=== PATIENT | male | born 1970 | race Hispanic/Latino ===

== ENCOUNTER 2020-03-03 09:52 | Inpatient (IN) | payer OTHER ==
[~2020-03-03] VITALS: Ht 170.2 cm; Wt 114.8 kg
[2020-03-03] MEDS ORDERED: PANTOPRAZOLE 40 MG 10ML VIAL IV STA (10:06)
[2020-03-03] MEDS ORDERED: HYDROMORPHONE 1MG/1ML INJ IV STA (10:06)
[2020-03-03] MEDS ORDERED: ONDANSETRON HCL INJ 2MG/ML 2ML 2 MG/ML VIAL IV STA (10:06)
[2020-03-03] MEDS ORDERED: SODIUM CHLORIDE 0.9% 1000ML 1,000 ML IV STA (10:06)
[2020-03-03 10:36] LABS: BASOPHILS % 0.3 % (0.0-1.0); EOSINOPHILS # (AUTO) 0.1 (0.0-0.4); EOSINOPHILS % 1.9 % (0.0-6.0); HEMATOCRIT 40.6 % (38.2-49.6); HEMOGLOBIN 13.8 g/dL (14.0-18.0); LYMPHOCYTES # (AUTO) 0.4 (1.0-3.2); LYMPHOCYTES % 4.7 % (18.0-39.1); MEAN CORPUSCULAR HEMOGLOBIN 30.7 pg (28-32); MEAN CORPUSCULAR VOLUME 90.4 fL (81-99); MONOCYTES # (AUTO) 0.7 (0.2-0.8); MONOCYTES % 8.9 % (4.4-11.3); NEUTROPHILS # (AUTO) 6.2 (2.1-6.9); NEUTROPHILS % 83.7 % (38.7-80.0); PLATELET COUNT 184 x10e3/uL (140-360); RED BLOOD COUNT 4.49 x10e6/uL (4.3-5.7); RED CELL DISTRIBUTION WIDTH 14.4 % (11.7-14.4)
--- OUTSIDE RECORDS SUMMARY | 2020-03-03 10:37 | XMS REPORT | Clinical Summary ---
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 Active Problems Not on file Social History Date Tobacco Use Types Packs/Day Years Used Current Some Day Smoker Cigarettes 0.25 30 Smokeless Tobacco: Never Used Drinks/Week oz/Week Comments Alcohol Use 12 Cans of beer 12.0 Yes Sex Assigned at Date Recorded Not on file Industry Job Start Date Occupation Not on file Not on file Not on file Travel End Travel History Travel Start No recent travel history available. 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
--- OUTSIDE RECORDS SUMMARY | 2020-03-03 10:37 | XMS REPORT | Continuity of Care Document ---
Author Author [facility] t Organization [facility] Address [address] [place] [address] Phone Unavailable Care Team Providers Care Nursing Staffing Coordinator Name Role Phone Asked, Pcp No PCP Unavailable Payers Payer Name Policy Type Policy Number Effective Date Expiration Date S ource Problems This patient has no known problems. Allergies, Adverse Reactions, Alerts Allergy Name Allergy Type Status Severity Reaction(s) Onset Date Inacti ve Date Treating Clinician Comments Source No Known Allergies DA Active U 2019-12-08 00:00:00 [facility] No Known Allergies DA Active U 2016-06-10 00:00:00 [facility] Social History Social Habit Start Date Stop Date Quantity Comments Source History of tobacco use Cigarette Smoker Joseph Cervantes Sex Assigned At [facility] [employer] Cigarettes smoked current (pack per day) - Reported 00:00:00 2018-06-24 00:00:00 Joseph Cervantes Cigarette pack-years 2018-06-24 00:00:00 2018-06-24 00:00:00 Joseph Cervantes Alcohol intake 2018-06-24 00:00:00 2018-06-24 00:00:00 Current drinker of alcohol (finding) Joseph Cervantes Smoking Status Start Date Stop Date Source Current some day smoker 2018-06-24 00:00:00 James Cervantes Medications Ordered Medication Name Filled Medication Name Start Date Stop Da te Current Medication? Ordering Clinician Indication Dosage Frequency Signature (SIG) Comments Components Source LISINOPRIL-HCTZ 10-12.5 MG COMBO DOSE 2018-06-24 13:11:13 Y es 1{tbl} QD Take 1 tablet by mouth daily. [facility] Procedures This patient has no known procedures. Plan of Care Planned Activity Planned Date Details Comments Source Future Scheduled Test 2020-03-14 00:00:00 INFLUENZA VACCINE [code = INFLUENZA VACCINE] Joseph Cervantes Future Scheduled Test 2019 00:00:00 COLONOSCOPY SCREEN ING [code = [facility] SCREENING[facility] 2019 00:00:00 SHINGLES VACCINES (#1) [code = SHINGLES VACCINES (#1)] [facility] Results Test Description Test Time Test Comments Results Result Comments Source - CT ABD PELVIS W/CONT 2019-12-08 13:04:00 Nam e: CRIS STEWART [facility] : 1970 Age/S: 49 / M [address] [facility] Unit #: [id number] [place]: [place] [address] Phys: Raj Miramontes NP Acct: [id number] Dis Date: Status: REG ER PHONE #: [phone] Exam Date: 12/08/2019 1227 FAX #: [phone] Reason: LOWER RIGHT ABD PAIN R/O APPENDICITIS EXAMS: CPT CODE: [id number] CT ABD PELVIS W/CONT 10372 REASON FOR EXAM: LOWER RIGHT ABD PAIN R/O APPENDICITIS EXAM ORDER DATE: 12/08/2019 10:02 AM Ordering MRenetta: Raj Miramontes NP PROCEDURE: Axial CT images were acquired through the abdomen/pelvis at 5 mm intervals. Sagittal and coronal reformatted images were generated. Automated exposure control was utilized for this reduction. Phases of contrast: venous and delayed COMPARISON: None FINDINGS: V isualized thorax: Normal Hepatobiliary system: Hepatomegaly with hepatic steatosis. Gallbladder is within normal limits Pancreas: Normal Spleen: Normal Adrenal glands: Normal Genitourinary system: Simple cortical cysts are present in both kidneys. Otherwise normal Gastrointestinal tract and appendix: Normal. Specifically the appendix is normal in caliber with no intraluminal appendicolith and no mural thickening Abdominal vascular structures: Mild atherosclerotic calcifications are present in the abdominal aorta and iliac arteries Peritoneum and retroperitoneum: No free fluid or free air. No omental or mesenteric masses. No abnormal lymph nodes. There is mild stranding of the mesentery in the right lower abdomen adjacent to the right gonadal vein (series 601 image 91). 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 However the appendix appears within normal limits with no dilation or mural thickening or intraluminal appendicolith. 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 Location: [facility] at 1304 Reported and signed by: Omer Jalloh MD CC: Sebas Jauregui MD; Raj Miramontes NP Technologist:Cristian Gomez RT(R),(MR),(CT) CTDI: DLP: Trnscb Date/Time: 12/08/2019 (1304) [id number] Orig Print D/T: S: 12/08/2019 (3979) PAGE 2 Signed Report BASIC METABOLIC PANEL 2019-12-08 11:54:00 Test Item SODIUM (test code = NA) 138 mmol/L 136-145 N POTASSIUM (test code = K) 4.1 mmol/L 3.5-5.1 N CHLORIDE (test code = CL) 101.0 mmol/L 98-107 N CARBON DIOXIDE (test code = CO2) 29.0 mmol/L 21-32 N ANION GAP (test code = GAP) 12.1 10-20 N GLUCOSE (test code = GLU) 141 mg/dL 74-106 H BLOOD UREA NITROGEN (test code = BUN) 11 mg/dL 7-18 N GLOMERULAR FILTRATION RATE (test code = GFR) > 60 mL/min >=60 Estimated GFR by using Modified MDRD formula.Chronic kidney disease is defined as either kidney damageor GFR <60 mL/min/1.73 m2 for >3 months. CREATININE (test code = CREAT) 1.00 mg/dL 0.7-1.3 N BUN/CREATININE RATIO (test code = BUN/CREA) 11.5 10-20 N CALCIUM (test code = CA) 9.6 mg/dL 8.5-10.1 N HEPATIC FUNCTION [id number] 11:54:00* Test Item Value Reference Range Interpretation Comments TOTAL PROTEIN (test code = PROT) 8.0 gram/dL 6.4-8.2 N ALBUMIN (test code = ALB) 3.5 g/dL 3.4-5.0 N GLOBULIN (test code = GLOB) 4.5 gram/dL 2.7-4.2 H ALBUMIN/GLOBULIN RATIO (test code = A/G) 0.8 0.75-1.50 N BILIRUBIN TOTAL (test code = BILT) 1.20 mg/dL 0.0-1.0 H BILIRUBIN DIRECT (test code = BILD) 0.28 mg/dL 0.0-0.20 H SGOT/AST (test code = AST) 110 IUnit/L 15-37 H SGPT/ALT (test code = ALT) 214 IUnit/L 12-78 H ALKALINE PHOSPHATASE TOTAL (test code = ALKP) 76 IUnit/L 45-117 N Note change in reference range due to change in reagent. [id number] 11:54:00* Test Item Value Reference Range Interpretation Comments LIPASE (test code = LIP) 225 U/L 73.0-393.0 N [id number] 11:54:00* Test Item Value Reference Range Interpretation Comments TROPONIN-I (test code = TROPI) <0.015 ng/mL 0-0.045 N BASIC METABOLIC [id number] 11:49:00* Test Item Value Reference Range Interpretation Comments SODIUM (test code = NA) 138 mmol/L 136-145 N POTASSIUM (test code = K) 4.1 mmol/L 3.5-5.1 N CHLORIDE (test code = CL) 101.0 mmol/L 98-107 N CARBON DIOXIDE (test code = CO2) mmol/L 21-32 ANION GAP (test code = GAP) 10-20 GLUCOSE (test code = GLU) mg/dL 74-106 BLOOD UREA NITROGEN (test code = BUN) mg/dL 7-18 GLOMERULAR FILTRATION RATE (test code = GFR) mL/min >=60 CREATININE (test code = CREAT) mg/dL 0.7-1.3 BUN/CREATININE RATIO (test code = BUN/CREA) 10-20 CALCIUM (test code = CA) mg/dL 8.5-10.1 HEPATIC FUNCTION [id number] 11:49:00* Test Item Value Reference Range Interpretation Comments TOTAL PROTEIN (test code = PROT) gram/dL 6.4-8.2 ALBUMIN (test code = ALB) g/dL 3.4-5.0 GLOBULIN (test code = GLOB) gram/dL 2.7-4.2 ALBUMIN/GLOBULIN RATIO (test code = A/G) 0.75-1.50 BILIRUBIN TOTAL (test code = BILT) mg/dL 0.0-1.0 BILIRUBIN DIRECT (test code = BILD) mg/dL 0.0-0.20 SGOT/AST (test code = AST) IUnit/L 15-37 SGPT/ALT (test code = ALT) IUnit/L 12-78 ALKALINE PHOSPHATASE TOTAL (test code = ALKP) IUnit/L 45-117 [id number] 11:49:00* Test Item Value Reference Range Interpretation Comments LIPASE (test code = LIP) U/L 73.0-393.0 [id number] 11:49:00* Test Item Value Reference Range Interpretation Comments TROPONIN-I (test code = TROPI) ng/mL 0-0.045 URINALYSIS [id number] 11:33:00* Test Item Value Reference Range Interpretation Comments UA COLOR (test code = COLU) Light-Yellow YELLOW UA APPEARANCE (test code = APPU) CLEAR CLEAR UA GLUCOSE DIPSTICK (test code = DGLUU) NEGATIVE mg/dL NEGATIVE UA BILIRUBIN DIPSTICK (test code = BILU) NEGATIVE mg/dL NEGATIVE UA KETONE DIPSTICK (test code = KETU) NEGATIVE mg/dL NEGATIVE UA SPECIFIC GRAVITY (test code = SGU) 1.017 1.001-1.035 UA BLOOD DIPSTICK (test code = CHARO) Negative mg/dL NEGATIVE UA PH DIPSTICK (test code = RED) 7.5 5.0-8.0 UA PROTEIN DIPSTICK (test code = PROU) NEGATIVE mg/dL NEGATIVE UA UROBILINIOGEN DIPSTICK (test code = URO) Normal mg/dL NEGATIVE UA NITRITE DIPSTICK (test code = TREY) NEGATIVE NEGATIVE UA LEUKOCYTE ESTERASE W REFLEX (test code = LEUUR) NEGATIVE Alva/uL NEGATIVE UA WBC (test code = WBCU) 0-5 per HPF 0-5 UA RBC (test code = RBCU) 0-2 #/HPF 0-5 UA EPITHELIAL CELLS (test code = EPIU) None seen per HPF FEW UA BACTERIA (test code = BACU) NONE SEEN #/HPF NONE UA MUCUS (test code = MUCU) FEW #/LPF FEW Urine Source? Clean CatchCBC W/O [id number] 11:32:00* Test Item Value Reference Range Interpretation Comments WHITE BLOOD CELL (test code = WBC) 12.3 K/mm3 4.5-12.5 N RED BLOOD CELL (test code = RBC) 5.46 mill/mm3 4.0-5.8 N HEMOGLOBIN (test code = HGB) 16.7 gram/dL 13.0-17.5 N HEMATOCRIT (test code = HCT) 48.5 % 42.0-52.0 N MEAN CELL VOLUME (test code = MCV) 88.8 fL 80-98 N MEAN CELL HGB (test code = MCH) 30.6 picogram 27.0-33.0 N MEAN CELL HGB CONCETRATION (test code = MCHC) 34.4 gram/dL 33.0-36. 0 N RED CELL DISTRIBUTION WIDTH (test code = RDW) 12.5 % 11.6-16. 2 N PLATELET COUNT (test code = PLT) 268 K/mm3 150-450 N MEAN PLATELET VOLUME (test code = MPV) 9.9 fL 6.7-11.0 N URINALYSIS [id number] 11:32:00* Test Item Value Reference Range Interpretation Comments UA COLOR (test code = COLU) Light-Yellow YELLOW UA APPEARANCE (test code = APPU) CLEAR CLEAR UA GLUCOSE DIPSTICK (test code = DGLUU) NEGATIVE mg/dL NEGATIVE UA BILIRUBIN DIPSTICK (test code = BILU) NEGATIVE mg/dL NEGATIVE UA KETONE DIPSTICK (test code = KETU) NEGATIVE mg/dL NEGATIVE UA SPECIFIC GRAVITY (test code = SGU) 1.017 1.001-1.035 UA BLOOD DIPSTICK (test code = CHARO) Negative mg/dL NEGATIVE UA PH DIPSTICK (test code = RED) 7.5 5.0-8.0 UA PROTEIN DIPSTICK (test code = PROU) NEGATIVE mg/dL NEGATIVE UA UROBILINIOGEN DIPSTICK (test code = URO) Normal mg/dL NEGATIVE UA NITRITE DIPSTICK (test code = TREY) NEGATIVE NEGATIVE UA LEUKOCYTE ESTERASE W REFLEX (test code = LEUUR) NEGATIVE Alva/uL NEGATIVE UA WBC (test code = WBCU) per HPF 0-5 UA RBC (test code = RBCU) per HPF 0-5 UA EPITHELIAL CELLS (test code = EPIU) per HPF Few UA BACTERIA (test code = BACU) per HPF NONE Urine Source? Clean CatchCBC W/O [id number] 11:31:00* Test Item Value Reference Range Interpretation Comments WHITE BLOOD CELL (test code = WBC) K/mm3 4.5-12.5 RED BLOOD CELL (test code = RBC) mill/mm3 4.0-5.8 HEMOGLOBIN (test code = HGB) 16.7 gram/dL 13.0-17.5 N HEMATOCRIT (test code = HCT) 48.5 % 42.0-52.0 N MEAN CELL VOLUME (test code = MCV) fL 80-98 MEAN CELL HGB (test code = MCH) picogram 27.0-33.0 MEAN CELL HGB CONCETRATION (test code = MCHC) gram/dL 33.0-36. 0 RED CELL DISTRIBUTION WIDTH (test code = RDW) % 11.6-16. 2 PLATELET COUNT (test code = PLT) K/mm3 150-450 MEAN PLATELET VOLUME (test code = MPV) fL 6.7-11.0
[2020-03-03 10:44] LABS: CLARITY,URINE CLEAR (CLEAR); COLOR,URINE YELLOW (YELLOW); KETONES,URINE 2+ (NEGATIVE); LEUKOCYTE ESTERASE ,URINE NEGATIVE (NEGATIVE); NITRITE,URINE NEGATIVE (NEGATIVE); PROTEIN,URINE DIPSTICK NEGATIVE (NEGATIVE); URINE UROBILINOGEN 0.2 mg/dL (0.2 - 1)
[2020-03-03 10:45] LABS: BILIRUBIN,URINE SMALL (NEGATIVE)
[2020-03-03 10:48] LABS: PARTIAL THROMBOPLASTIN TIME 34.1 seconds (23.8-35.5); PROTHROMBIN TIME 13.7 seconds (11.9-14.5)
[2020-03-03 10:54] LABS: BACTERIA,URINE FEW /HPF; EPITHELIAL CELLS,URINE RARE /LPF; WBC,URINE (MAN) 0-5 /HPF (0-5)
[2020-03-03 11:00] LABS: ALANINE AMINOTRANSFERASE 24 IU/L (0-55); ALBUMIN 3.6 g/dL (3.5-5.0); ALBUMIN/GLOBULIN RATIO 0.9 (0.8-2.0); ALKALINE PHOSPHATASE 50 IU/L (40-150); ANION GAP 16.1 mmol/L (8-16); BLOOD UREA NITROGEN 10 mg/dL (7-26); BUN/CREATININE RATIO 13 (6-25); CALCIUM 10.5 mg/dL (8.4-10.2); CARBON DIOXIDE 28 mmol/L (22-29); CHLORIDE 99 mmol/L (98-107); CREATINE KINASE 51 IU/L (30-200); CREATININE, SERUM 0.77 mg/dL (0.72-1.25); EST GLOMERULAR FILTRATION RATE > 60 ML/MIN (60-); GLUCOSE 105 mg/dL (74-118); LIPASE 57 U/L (8-78); MAGNESIUM 1.8 MG/DL (1.3-2.1); POTASSIUM 4.1 mmol/L (3.5-5.1); SODIUM 139 mmol/L (136-145)
--- NOTE | 2020-03-03 11:40 | Emergency Department Note ---
History of Present Illnes History of Present Illness Chief Complaint: Abdominal Complaints History of Present Illness This is a 50 year old male X3 DAYS RIGHT SIDE ABDOMINAL PAIN DESCRIBED DULL. 1ST DAY HE STATES HE HAD SUBJECTIVE FEVER, CHILLS, AND NAUSEA. HE HAS NOT EATEN ANYTHING FOR LAST 3 DAYS AND IS TAKING HYDROCODONE PATIENT IN CURRENT [place] FOR THROAT CANCER WITH CARBOPLATIN (6 TREATMENTS) AND COMPLETED RADIATION LAST WEEK. 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 Any updates have been documented here. Past Medical History Recent Fever: Yes (SUBJECTIVE) Clinical Suspicion of Infectio: No New/Unexplained Change in Ment: No Past Medical History: Hypertension, Cancer Other Medical History: THROAT CANCER Past Surgical History: Hernia Repair Other Surgery: CARPAL TUNNEL Social History Smoking Cessation: Former smoker Counseling Performed: No Alcohol Use: None Any Illegal Drug Use: No TB Exposure/Symptoms: No Physically hurt or threatened: No Family History Family history of heart diseas: No Other Any Pre-Existing Lines (PICC,: No Review of Systems Review of Systems Constitutional: Reports no symptoms EENTM: Reports no symptoms Cardiovascular: Reports no symptoms Respiratory: Reports no symptoms Gastrointestinal: Reports as per HPI Genitourinary: Reports no symptoms Musculoskeletal: Reports no symptoms Integumentary: Reports no symptoms Neurological: Reports no symptoms Psychological: Reports no symptoms Endocrine: Reports no symptoms Hematological/Lymphatic: Reports no symptoms Physical Exam Related Data Allergies: Coded Allergies: No Known Allergies (Unverified , 03/03/20) Triage Vital Signs Vital Signs Date Time Temp Pulse Resp B/P (MAP) Pulse Ox O2 Delivery O2 Flow Rate FiO2 03/03/20 09:56 97.9 78 18 133/86 99 Room Air Vital signs reviewed: Yes Physical Exam CONSTITUTIONAL Constitutional: Present well-developed, Present well-nourished HENT HENT: Present normocephalic, Present atraumatic, Present oropharynx clear/moist, Present nose normal HENT L/R: Present left ext ear normal, Present right ext ear normal EYES Eyes: Reports PERRL, Reports conjunctivae normal NECK Neck: Present ROM normal PULMONARY Pulmonary: Present effort normal, Present breath sounds normal CARDIOVASCULAR Cardiovascular: Present regular rhythm, Present heart sounds normal, Present capillary refill normal, Present normal rate GASTROINTESTINAL Abdominal: Present soft, Present bowel sounds normal, Present tender (MOD RLQ WITHOUT R/G); Absent guarding, Absent rebound GENITOURINARY Genitourinary: Present exam deferred SKIN Skin: Present warm, Present dry MUSCULOSKELETAL Musculoskeletal: Present ROM normal NEUROLOGICAL Neurological: Present alert, Present oriented x 3, Present no gross motor or sensory deficits PSYCHOLOGICAL Psychological: Present mood/affect normal, Present judgement normal Results Laboratory Result Diagram: 03/03/20 1015 03/03/20 1005 Laboratory Laboratory Tests Test 03/03/20 10:15 03/03/20 10:05 White Blood Count 7.42 x10e3/uL (4.8-10.8) Red Blood Count 4.49 x10e6/uL (4.3-5.7) Hemoglobin 13.8 g/dL (14.0-18.0) Hematocrit 40.6 % (38.2-49.6) Mean Corpuscular Volume 90.4 fL (81-99) Mean Corpuscular Hemoglobin 30.7 pg (28-32) Mean Corpuscular Hemoglobin Concent 34.0 g/dL (31-35) Red Cell Distribution Width 14.4 % (11.7-14.4) Platelet Count 184 x10e3/uL (140-360) Neutrophils (%) (Auto) 83.7 % (38.7-80.0) Lymphocytes (%) (Auto) 4.7 % (18.0-39.1) Monocytes (%) (Auto) 8.9 % (4.4-11.3) Eosinophils (%) (Auto) 1.9 % (0.0-6.0) Basophils (%) (Auto) 0.3 % (0.0-1.0) Neutrophils # (Auto) 6.2 (2.1-6.9) Lymphocytes # (Auto) 0.4 (1.0-3.2) Monocytes # (Auto) 0.7 (0.2-0.8) Eosinophils # (Auto) 0.1 (0.0-0.4) Basophils # (Auto) 0.0 (0.0-0.1) Absolute Immature Granulocyte (auto 0.04 x10e3/uL (0-0.1) Prothrombin Time 13.7 seconds (11.9-14.5) Prothromb Time International Ratio 1.00 Activated Partial Thromboplast Time 34.1 seconds (23.8-35.5) Urine Color Yellow (YELLOW) Urine Clarity Clear (CLEAR) Urine pH 6 (5 - 7) Urine Specific Sargent 1.020 (1.010-1.025) Urine Protein Negative (NEGATIVE) Urine Glucose (UA) Negative (NEGATIVE) Urine Ketones 2+ (NEGATIVE) Urine Blood Negative (NEGATIVE) Urine Nitrite Negative (NEGATIVE) Urine Bilirubin Small (NEGATIVE) Urine Urobilinogen 0.2 mg/dL (0.2 - 1) Urine Leukocyte Esterase Negative (NEGATIVE) Urine RBC None /HPF (0-5) Urine WBC 0-5 /HPF (0-5) Urine Epithelial Cells Rare /LPF (NONE) Urine Bacteria Few /HPF (NONE) Sodium Level 139 mmol/L (136-145) Potassium Level 4.1 mmol/L (3.5-5.1) Chloride Level 99 mmol/L (98-107) Carbon Dioxide Level 28 mmol/L (22-29) Anion Gap 16.1 mmol/L (8-16) Blood Urea Nitrogen 10 mg/dL (7-26) Creatinine 0.77 mg/dL (0.72-1.25) Estimat Glomerular Filtration Rate > 60 ML/MIN (60-) BUN/Creatinine Ratio 13 (6-25) Glucose Level 105 mg/dL (74-118) Calcium Level 10.5 mg/dL (8.4-10.2) Magnesium Level 1.8 MG/DL (1.3-2.1) Total Bilirubin 1.2 mg/dL (0.2-1.2) Aspartate Amino Transf (AST/SGOT) 21 IU/L (5-34) Alanine Aminotransferase (ALT/SGPT) 24 IU/L (0-55) Alkaline Phosphatase 50 IU/L (40-150) Creatine Kinase 51 IU/L (30-200) Creatine Kinase MB 0.60 ng/mL (0-5.0) Troponin I < 0.001 ng/mL (0-0.300) Total Protein 7.5 g/dL (6.5-8.1) Albumin 3.6 g/dL (3.5-5.0) Globulin 3.9 g/dL (2.3-3.5) Albumin/Globulin Ratio 0.9 (0.8-2.0) Lipase 57 U/L (8-78) Lab results reviewed: Yes Imaging Imaging results reviewed: Yes Assessment & Plan Medical Decision Making MDM ABD PAIN, NAUSEA, RECENT CHEMO 4 D AGO, TENDER RLQ - CBC, CHEM, UA, CT ABD/PELVIS - R/O APPENDICITIS, COLITIS, MASS, ELECTROLYTE ABNL, RENAL INSUFF Reassessment Reassessment APPENDICITIS - SPOKE WITH DR SARGENT AND DR Rc MCMILLAN Assessment & Plan Final Impression: (1) Appendicitis Depart Disposition: ADMITTED Last Vital Signs Date Time Temp Pulse Resp B/P (MAP) Pulse Ox O2 Delivery O2 Flow Rate FiO2 03/03/20 11:05 65 16 125/76 97 Room Air 03/03/20 10:42 98.1 Medications in the ED Pantoprazole Sodium 40 mg ONCE STAT IV Last administered on 03/03/20at 10:35; Admin Dose 40 MG; Start 03/03/20 at 10:06; Stop 03/03/20 at 10:23; Status DC Hydromorphone HCl 1 mg ONCE STAT IV Last administered on 03/03/20at 10:35; Admin Dose 1 MG; Start 03/03/20 at 10:06; Stop 03/03/20 at 10:23; Status DC Ondansetron HCl 4 mg ONCE STAT IV Last administered on 03/03/20at 10:35; Admin Dose 4 MG; Start 03/03/20 at 10:06; Stop 03/03/20 at 10:23; Status DC Sodium Chloride 1,000 ml @ 0 mls/hr Q0M STAT IV Last administered on 03/03/20at 10:36; Admin Dose 999 MLS/HR; Start 03/03/20 at 10:06; Stop 03/03/20 at 10:09; Status DC VIOLETA SLAUGHTER MD Mar 03, 2020 11:40
--- NOTE | 2020-03-03 11:42 | Diagnostic Imaging Report ---
EXAMINATION: CHEST SINGLE (PORTABLE) INDICATION: Abdominal pain COMPARISON: None FINDINGS: LINES/TUBES:None LUNGS:The lungs are well-inflated. No focal consolidation or pulmonary edema. PLEURA:No pleural effusion or pneumothorax. MEDIASTINUM:The cardiomediastinal silhouette appears normal in size and shape. BONES/SOFT TISSUES:No acute osseous injury. ABDOMEN:No free air under the diaphragm. IMPRESSION: No focal pneumonia or pulmonary edema. Signed by: Jerilyn Bolaños MD on 03/03/2020 11:38 AM
--- NOTE | 2020-03-03 12:15 | Diagnostic Imaging Report ---
EXAM: CT Abdomen and Pelvis WITH intravenous contrast INDICATION: Abdominal pain COMPARISON: None. TECHNIQUE: Abdomen and pelvis were scanned utilizing a multidetector helical scanner from the lung base to the pubic symphysis after administration of IV contrast. Coronal and sagittal reformations were obtained. Routine protocol was performed. Scan was performed during portal venous phase. IV CONTRAST: 100mL of Isovue 370 ORAL CONTRAST: Water RADIATION DOSE: Total DLP: 925 mGy*cm Dose modulation, iterative reconstruction, and/or weight based adjustment of the mA/kV was utilized to reduce the radiation dose to as low as reasonably achievable. FINDINGS: LOWER THORAX: Normal. HEPATOBILIARY: Diffuse hepatic steatosis. No focal liver lesion. No biliary ductal dilation. Unremarkable gallbladder. SPLEEN: No splenomegaly. PANCREAS: No focal masses or ductal dilatation. ADRENALS: No adrenal nodules. KIDNEYS/URETERS: No hydronephrosis or renal calculi. Bilateral renal cysts measure up to 2.3 cm on the right and 3.4 cm on the left. PELVIC ORGANS/BLADDER: Unremarkable. PERITONEUM / RETROPERITONEUM: No free air or fluid. LYMPH NODES: No lymphadenopathy. VESSELS: Scattered atherosclerotic calcifications of the nonaneurysmal abdominal aorta and major branches. GI TRACT: Appendiceal dilation to 11 mm with adjacent right lower quadrant periappendiceal fat stranding. No associated focal fluid collection. No extraluminal free air. Diverticulosis without CT evidence of diverticulitis. No bowel obstruction. BONES AND SOFT TISSUES: No acute osseous injury. No suspicious lytic or blastic lesions. IMPRESSION: Acute appendicitis. No evidence of perforation or associated abscess. Diffuse hepatic steatosis. Diverticulosis. The above findings were discussed with Dr. Oviedo on 03/03/2020 12:10 PM, who responded indicating that the communication was understood. Signed by: Jerilyn Bolaños MD on 03/03/2020 12:11 PM
[2020-03-03] MEDS ORDERED: MORPHINE SULFATE 2 MG/ML SYR 1ML IV PRN (12:30)
[2020-03-03] MEDS ORDERED: PIPER-TAZ 3.375 GM / NS 50ML IV SCH (12:30)
[2020-03-03] MEDS ORDERED: ONDANSETRON HCL INJ 2MG/ML 2ML 2 MG/ML VIAL IV PRN (12:30)
[2020-03-03] MEDS ORDERED: SODIUM CHLORIDE 0.9% 50ML 50 ML ONE (12:33)
[2020-03-03] MEDS ORDERED: IOPAMIDOL 370 MG/ML 200 ML INFUS..BTL INJ ONE (12:33)
[2020-03-03] MEDS ORDERED: PIPER-TAZ 3.375 GM 50 ML IV SCH (12:45)
[2020-03-03] MEDS: SODIUM CHLORIDE 0.9% 1000ML 1,000 ML IV SCH ×2 (12:48→22:33)
--- OUTSIDE RECORDS SUMMARY | 2020-03-03 13:02 | XMS REPORT | Clinical Summary ---
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
--- OUTSIDE RECORDS SUMMARY | 2020-03-03 13:02 | XMS REPORT | Continuity of Care Document ---
Author Author [facility] t Organization [facility] Address [address] [place] [address] Phone Unavailable Care Team Providers Care Machine Operator Hop Picker Name Role Phone Asked, Pcp No PCP Unavailable SWEET, A LAIRD Attphys Unavailable Payers Payer Name Policy Type Policy Number Effective Date Expiration Date S ource Problems This patient has no known problems. Allergies, Adverse Reactions, Alerts Allergy Name Allergy Type Status Severity Reaction(s) Onset Date Inacti ve Date Treating Clinician Comments Source No Known Allergies DA Active U 2019-12-08 00:00:00 [facility] No Known Allergies DA Active U 2016-06-10 00:00:00 [facility] Social History Social Habit Start Date Stop Date Quantity Comments Source History of tobacco use Cigarette Smoker Joseph Cervantes Sex Assigned At Bethanie morfin Billy Cigarettes smoked current (pack per day) - Reported 00:00:00 2018-06-24 00:00:00 Joseph Cervantes Cigarette pack-years 2018-06-24 00:00:00 2018-06-24 00:00:00 Joseph Cervantes Alcohol intake 2018-06-24 00:00:00 2018-06-24 00:00:00 Current drinker of alcohol (finding) Joseph Cervantes Smoking Status Start Date Stop Date Source Current some day smoker 2018-06-24 00:00:00 James eCrvantes Medications Ordered Medication Name Filled Medication Name Start Date Stop Da te Current Medication? Ordering Clinician Indication Dosage Frequency Signature (SIG) Comments Components Source LISINOPRIL-HCTZ 10-12.5 MG COMBO DOSE 2018-06-24 13:11:13 Y es 1{tbl} QD Take 1 tablet by mouth daily. [facility] thodi Procedures This patient has no known procedures. Plan of Care Planned Activity Planned Date Details Comments Source Future Scheduled Test 2020-03-14 00:00:00 INFLUENZA VACCINE [code = INFLUENZA VACCINE] [facility] Future Scheduled Test 2019 00:00:00 COLONOSCOPY SCREEN ING [code = COLONOSCOPY SCREENING] [facility] Future Scheduled Test 2019 00:00:00 SHINGLES VACCINES (#1) [code = SHINGLES VACCINES (#1)] [facility] Results Test Description Test Time Test Comments Results Result Comments Source CT ABDOMEN/PELVIS W 2020-03-03 12:06:00 [place] [address] Patient Name: CRIS STEWART MR #: [id number] : 1970 Age/Sex: 50/M Req #: [id number] [facility] Physician: Ordered by: VIOLETA SLAUGHTER MD Report #: [id number] Location: ER Room/Bed: Procedure: [id number] CT/CT ABDOMEN/PELVIS W Exam Date: 03/03/20 Exam Time: 1142 REPORT STATUS: Signed EXAM: CT Abdomen and Pelvis WITH intravenous contrast INDICATION: Abdominal pain COMPARISON: None. TECHNIQUE: Abdomen and pelvis were scanned utilizing a multidetector helical scanner from the lung base to the pubic symphysis after administration of IV contrast. Coronal and sagittal reformations were obtained. Routine protocol was performed. Scan was performed during portal venous phase. IV CONTRAST: 100mL of Isovue 370 ORAL CONTRAST: Water RADIATION DOSE: Total DLP: 925 mGy*cm Dose modulation, iterative reconstruction, and/or weight based adjustment of the mA/kV was utilized to reduce the radiation dose to as low as reasonably achievable. FINDINGS: LOWER THORAX: Normal. HEPATOBILIARY: Diffuse hepatic steatosis. No focal liver lesion. No biliary ductal dilation. Unremarkable gallbladder. SPLEEN: No splenomegaly. PANCREAS: No focal masses or ductal dilatation. ADRENALS: No adrenal nodules. KIDNEYS/URETERS: No hydronephrosis or renal calculi. Bilateral renal cysts measure up to 2.3 cm on the right and 3.4 cm on the left. PELVIC ORGANS/BLADDER: Unremarkable. PERITONEUM / RETROPERITONEUM: No free air or fluid. LYMPH NODES: No lymphadenopathy. VESSELS: Scattered atherosclerotic calcifications of the nonaneurysmal abdominal aorta and major branches. GI TRACT: Appendiceal dilation to 11 mm with adjacent right lower quadrant periappendiceal fat stranding. No associated focal fluid collection. No extraluminal free air. Diverticulosis without CT evidence of diverticulitis. No bowel obstruction. BONES AND SOFT TISSUES: No acute osseous injury. No roberts spicious lytic or blastic lesions. IMPRESSION: Acute appendicitis. No evidence of perforation or associated abscess. Diffuse hepatic steatosis. Diverticulosis. The above findings were discussed with Dr. Slaughter on 03/03/2020 12:10 PM, who responded indicating that the communication was understood. Signed by: Patrice Menon MD on 03/03/2020 12:11 PM Dictated By: PATRICE MENON MD 1211 Transcribed By: JOEL on 03/03/20 1211 COPY TO: VIOLETA SLAUGHTER MD CHEST SINGLE (PORTABLE) 2020-03-03 11:38:00 [place] [address] Patient Name: CRIS STEWART MR #: [id number] : 1970 Age/Sex: 50/M Req #: [id number] Adm Physician: Ordered by: VIOLETA SLAUGHTER MD Report #: [id number] Location: ER Room/Bed: Procedure: [id number] DX/CHEST SINGLE (PORTABLE) Exam Date: 03/03/20 Exam Time: 1020 REPORT STATUS: Signed EXAMINATION: CHEST SINGLE (PORTABLE) INDICATION: Abdominal pain COMPARISON: None FINDINGS: LINES/TUBES:None LUNGS:The lungs are well-inflated. No focal consolidation or pulmonary edema. PLEURA:No pleural effusion or pneumot horax. MEDIASTINUM:The cardiomediastinal silhouette appears normal in size and shape. BONES/SOFT TISSUES:No acute osseous injury. ABDOMEN:No free air under the diaphragm. IMPRESSION: No focal pneumonia or pulmonary edema. Signed by: Patrice Menon MD on 03/03/2020 11:38 AM Dictated By: PATRICE MENON MD 113 Transcribed By: JOEL on 03/03/20 1138 COPY TO: VIOLETA SLAUGHTER MD - CT ABD PELVIS W/CONT 2019-12-08 13:04:00 Nam e: CRIS STEWART [facility] : 1970 Age/S: 49 / M [address] [facility] Unit #: [id number] Loc: [place] [address] Phys: Raj Miramontes NP Acct: [id number] Dis Date: Status: REG ER PHONE #: [phone] Exam Date: 12/08/2019 1227 FAX #: [phone] Reason: LOWER RIGHT ABD PAIN R/O APPENDICITIS EXAMS: CPT CODE: [id number] CT ABD PELVIS W/CONT 14716 REASON FOR EXAM: LOWER RIGHT ABD PAIN R/O APPENDICITIS EXAM ORDER DATE: 12/08/2019 10:02 AM Ordering M.Silvia: Raj Miramontes NP PROCEDURE: Axial CT images [...] 1 Signed Report (CONTINUED) Name: CRIS STEWART [facility] : 1970 Age/S: 49 / M [address] [facility] [id number] Loc: [place] [address] Phys: Raj Miramontes TEMPERATURE LOGGING OPERATOR Acct: [id number] Dis Date: Status: REG ER PHONE #: [phone] Exam Date: 12/08/2019 1227 FAX #: [phone] Reason: LOWER RIGHT ABD PAIN R/O APPENDICITIS EXAMS: CPT CODE: [id number] CT ABD PELVIS W/CONT 23045 <Continued> are present in the thoracic spine IMPRESSION: Focal inflammation of the mesentery in the right lower abdomen in the vicinity of the appendix. However the appendix appears within normal limits with no dilation or mural thickening or intraluminal appendicolith. 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 Location: [facility] at 1304 Reported and signed by: Omer Jalloh MD CC: Sebas Jauregui MD; Raj Miramontes TEMPERATURE LOGGING OPERATOR Technologist:Cristian Gomez RT(R),(MR),(CT) CTDI: DLP: Trnscb Date/Time: 12/08/2019 (1304) [id number] Orig Print D/T: S: 12/08/2019 (3537) PAGE 2 Signed Report BASIC METABOLIC PANEL [...] CA) 9.6 mg/dL 8.5-10.1 N HEPATIC FUNCTION [id number] 11:54:00* Test Item Value Reference Range Interpretation [...] reference range due to change in reagent. [id number] 11:54:00* Test Item Value Reference Range Interpretation Comments LIPASE (test code = LIP) 225 U/L 73.0-393.0 N [id number] 11:54:00* Test Item Value Reference Range Interpretation Comments TROPONIN-I (test code = TROPI) <0.015 ng/mL 0-0.045 N BASIC METABOLIC [id number] 11:49:00* Test Item Value Reference Range Interpretation [...] code = CA) mg/dL 8.5-10.1 HEPATIC FUNCTION [id number] 11:49:00* Test Item Value Reference Range Interpretation [...] TOTAL (test code = ALKP) IUnit/L 45-117 [id number] 11:49:00* Test Item Value Reference Range Interpretation Comments LIPASE (test code = LIP) U/L 73.0-393.0 [id number] 11:49:00* Test Item Value Reference Range Interpretation Comments TROPONIN-I (test code = TROPI) ng/mL 0-0.045 URINALYSIS [id number] 11:33:00* Test Item Value Reference Range Interpretation [...] #/LPF FEW Urine Source? Clean CatchCBC W/O [id number] 11:32:00* Test Item Value Reference Range Interpretation [...] = MPV) 9.9 fL 6.7-11.0 N URINALYSIS [id number] 11:32:00* Test Item Value Reference Range Interpretation [...] HPF NONE Urine Source? Clean CatchCBC W/O [id number] 11:31:00* Test Item Value Reference Range Interpretation [...]
[2020-03-03] MEDS ORDERED: MIDAZOLAM HCL 2 MG/2 ML VIAL ONE (15:01)
[2020-03-03] MEDS ORDERED: FENTANYL CITRATE/PF 100MCG/2 ML INJ ONE (15:01)
--- NOTE | 2020-03-03 15:14 | NUR ---
PT TO THE FLOOR FROM ER. PT'S PAIN WNL. PT DENIES NEEDS AT THIS TIME.
[2020-03-03 15:17] VITALS: BP 121/72
[2020-03-03 15:45] VITALS: BP 132/77
--- NOTE | 2020-03-03 15:50 | NUR ---
OR HERE TO TAKE PT TO OR FOR A LAPAPENDECTOMY.
[2020-03-03] MEDS ORDERED: BUPIVACAINE 0.25%/EPI 30ML SDV INJ ONE (19:09)
[2020-03-03] MEDS ORDERED: ROCURONIUM BROMIDE 10 MG/ML 5ML VIAL IV ONE (19:38)
[2020-03-03] MEDS ORDERED: NEOSTIGMINE 1 MG/ML 10ML VIAL ONE (19:38)
[2020-03-03] MEDS ORDERED: ONDANSETRON HCL INJ 2MG/ML 2ML 2 MG/ML VIAL ONE (19:38)
[2020-03-03] MEDS ORDERED: GLYCOPYRROLATE INJ 0.2 MG/ML VIAL ONE (19:38)
[2020-03-03] MEDS ORDERED: METRONIDAZOLE 500MG/NS 100ML 100 ML IV ONE (19:38)
[2020-03-03] MEDS ORDERED: SEVOFLURANE INHAL SOLN 250 ML PEN BTL ONE (19:38)
[2020-03-03] MEDS ORDERED: PROPOFOL IV EMULSION 10 MG/ML 20 ML VIAL ONE (19:38)
[2020-03-03] MEDS ORDERED: DEXAMETHASONE SOD PHOS INJ 4 MG/ML VIAL ONE (19:38)
[2020-03-03] MEDS ORDERED: LIDOCAINE HCL 2% LOCAL INJ 5 ML SDV VIAL INJ ONE (19:38)
[2020-03-03] MEDS ORDERED: CEFTRIAXONE SOD 1 GM VIAL ONE (19:38)
[2020-03-03] MEDS ORDERED: HYDROMORPHONE 1MG/1ML INJ ONE ×2 (19:39→19:50)
[2020-03-03] MEDS: CEFTRIAXONE SOD 2 GM/NS 100 ML 100 ML IV SCH (20:00)
--- NOTE | 2020-03-03 20:10 | Operative Report ---
DATE OF PROCEDURE: 03/03/2020 SURGEON: Mark Peoples MD PREOPERATIVE DIAGNOSES: 1. Acute appendicitis. 2. Morbid obesity. 3. 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 POSTOPERATIVE DIAGNOSES: 1. Acute appendicitis. 2. Morbid obesity. 3. 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 PROCEDURE PERFORMED: Laparoscopic appendectomy. ANESTHESIA: General endotracheal. ESTIMATED BLOOD LOSS: Less than 100 mL. DRAINS: One 10 mm flat Javed-Mcclain drain. COMPLICATIONS: None. INDICATIONS: The patient is a morbidly obese, pleasant, 50-year-old male with a history of throat cancer, was admitted to the hospital via the emergency room, complaining of abdominal pain for [address] scan revealed acute appendicitis. Physical examination revealed right lower quadrant tenderness with rebound. INTRAOPERATIVE FINDINGS: Acute appendicitis with an appendix that was grossly abnormal even though there was no major dilatation of the appendix. The actual mesentery, mesoappendix appeared to be inflamed and thickened, all consistent with acute appendicitis. DESCRIPTION OF PROCEDURE: With the patient lying on the operative table in the supine position after administration of general anesthesia, he was prepped and draped for appendectomy laparoscopic. The procedure was begun by establishing the pneumoperitoneum in the right upper quadrant because of his large size and because he had a ventral hernia repair in the supraumbilical area. After insufflating the pneumoperitoneum to 250 mm of pressures with right upper quadrant midclavicular 5 mm trocar, after the saline drop test was performed and after the insufflation successfully of the pneumoperitoneum, the 5 mm trocar was placed. The umbilical site was free of any adhesions and then we placed a 11/12 trocar in the umbilical site and finally, we placed a right lower quadrant 5 mm trocar and in order to expose the appendix and the right colon during this procedure, we had to be with an extra trocar in the epigastric region using 5 mm trocar. After we did that, we identified the cecum and the appendix with the findings noted above. We then mobilized the cecum and the appendix until we found the junction with the cecum with a common bile duct, where it was soft and pliable. The rest of the appendix, though it was not dilated. It was somewhat fibrotic and the mesoappendix was grossly abnormal with significant inflammatory changes. We began the appendectomy retrogradely. We made a rent in the mesoappendix between the appendix and the cecum, and then we fired the Endo-FINN with a blue load and detached the appendix. As we were mobilizing the appendix, it broke in the junction between the one-third and middle third of the appendix and then we continued the dissection until we transected all of the mesoappendix with the stapler and then we removed the remaining part of the appendix along with the mesoappendix of the distal two-third of the appendix. After we did that, we placed it in an Endobag and removed. The abdomen was then inspected. The operative field was irrigated. There was no evidence of any bleeding. There was no evidence of any bowel leakage and we copiously irrigated the right lower quadrant until pelvis and right gutter until all the effluent fluid was clear. After we ascertained that we placed a 10 mm flat Javed-Mcclain drain through the right lower quadrant trocar and secured there with 2-0 silk to drain the right gutter and appendiceal bed, and then connected it to self-suction. After all the sponge and instrument counts were correct, we closed the wound using 0-Vicryl for the umbilical fascia, 3-0 Vicryl for the subcutaneous tissue in that location, and then the skin of all the ports was closed using hu. A 0.25% Marcaine with epinephrine was given as local block at the end of the case. The patient tolerated the procedure well and was taken to recovery room in stable condition. MD CHRIS Bautista/DOLORES /[id number]
--- NOTE | 2020-03-03 20:15 | NUR ---
Received patient from surgery. S/P appendectomy with 4 trocar sites. Sites clean, dry and intact. CARMINA drain to right lower quad with small amount of red drainage. VS 134/68, 7218. Resp even and unlabored. No s/s of SOB or resp distress noted. O2 sats 96% on RA. Pt c/o pain rates a 12/21. Pt was given Dilaudid 0.5mg at 1955. IV to Lt Ac 20g dry and intact with NS at 100ml/hr. Pt c/o dry mouth. Lemon glycerin swabs given.Non skid socks applied. Bed in locked and low position. Pt given urinal and instructed to call for assistance.Call light in reach. Will cont to monitor.
[2020-03-03 20:27] VITALS: BP 130/65
[2020-03-03 20:36] VITALS: BP 116/64
[2020-03-03] MEDS ORDERED: ZESTORETIC 10-1 EAC1 (20:57)
[2020-03-03] MEDS ORDERED: NORCO 10-325 T1 EACH PO (20:57)
[2020-03-03] MEDS: MORPHINE SULFATE INJ 4 MG/ML INJ 1ML IV PRN (21:33)
[2020-03-03] MEDS: PANTOPRAZOLE 40 MG 10ML VIAL IV SCH (21:42)
[2020-03-04] VITALS (8 sets, daily range): BP systolic 113–127; BP diastolic 65–73
[2020-03-04] MEDS ORDERED: MELATONIN 5 MG TABLET PO PRN (00:15)
[2020-03-04] MEDS ORDERED: ACETAMINOPHEN 325 MG TAB PO PRN (00:15)
[2020-03-04] MEDS ORDERED: HYDRALAZINE HCL 20 MG/ML VIAL IV PRN (00:15)
[2020-03-04] MEDS: METRONIDAZOLE 500MG/NS 100ML 100 ML IV SCH ×4 (00:44→18:16)
[2020-03-04] MEDS: MORPHINE SULFATE INJ 4 MG/ML INJ 1ML IV PRN ×5 (02:50→21:25)
[2020-03-04] MEDS: SODIUM CHLORIDE 0.9% 1000ML 1,000 ML IV SCH (05:38)
[2020-03-04 05:56] LABS: BASOPHILS % 0.1 % (0.0-1.0); HEMATOCRIT 36.3 % (38.2-49.6); HEMOGLOBIN 12.2 g/dL (14.0-18.0); LYMPHOCYTES # (AUTO) 0.2 (1.0-3.2); MEAN CORPUSCULAR HEMOGLOBIN 30.4 pg (28-32); MEAN CORPUSCULAR HGB CONC 33.6 g/dL (31-35); MEAN CORPUSCULAR VOLUME 90.5 fL (81-99); MONOCYTES # (AUTO) 0.2 (0.2-0.8); MONOCYTES % 3.4 % (4.4-11.3); NEUTROPHILS # (AUTO) 6.5 (2.1-6.9); NEUTROPHILS % 92.9 % (38.7-80.0); PLATELET COUNT 180 x10e3/uL (140-360); RED BLOOD COUNT 4.01 x10e6/uL (4.3-5.7); RED CELL DISTRIBUTION WIDTH 14.3 % (11.7-14.4)
[2020-03-04 06:20] LABS: ALANINE AMINOTRANSFERASE 19 IU/L (0-55); ALBUMIN/GLOBULIN RATIO 0.9 (0.8-2.0); ALKALINE PHOSPHATASE 50 IU/L (40-150); ANION GAP 16.5 mmol/L (8-16); BLOOD UREA NITROGEN 8 mg/dL (7-26); BUN/CREATININE RATIO 11 (6-25); CALCIUM 9.5 mg/dL (8.4-10.2); CARBON DIOXIDE 25 mmol/L (22-29); CHLORIDE 104 mmol/L (98-107); CREATININE, SERUM 0.74 mg/dL (0.72-1.25); EST GLOMERULAR FILTRATION RATE > 60 ML/MIN (60-); GLUCOSE 122 mg/dL (74-118); POTASSIUM 4.5 mmol/L (3.5-5.1); SODIUM 141 mmol/L (136-145)
--- NOTE | 2020-03-04 07:00 | NUR ---
BEDSIDE SHIFT REPORT RECEIVED FROM EXTRA GANG SUPERVISOR RN. PT DENIES NEEDS AT THIS TIME.
[2020-03-04] MEDS: DOCUSATE SODIUM 100 MG CAP PO SCH ×2 (08:18→16:13)
[2020-03-04] MEDS: ONDANSETRON HCL INJ 2MG/ML 2ML 2 MG/ML VIAL IV PRN ×4 (08:18→21:25)
[2020-03-04] MEDS ORDERED: BISACODYL 10 MG SUPP PR ONE (12:15)
[2020-03-04] MEDS ORDERED: D5NS/KCL 20MEQ 1,000 ML IV SCH (13:45)
[2020-03-04] MEDS: DEXTROSE 5%/0.9% SOD CHL 1,000 ML IV SCH (14:24)
--- NOTE | 2020-03-04 16:33 | NUR ---
Nutrition Screen Note RD Recommendation for Physician: -Recommend advancing diet when medically appropriate The patient meets criteria for unspecified SEVERE protein-calorie malnutrition. Plan of Care: RD following, monitoring for tolerance and adequacy Nutrition reason for involvement: Nutrition Risk Trigger Primary Diagnose(s): appendicitis PMH: no H/P Ht: 67 in Wt:253 lb BMI: 39.6 kg/m2 IBW:[address] Assessment: (03/04/20) Chart reviewed. Labs and meds reviewed. Pt is a 50 year old male admitted with appendicitis. Pt is currently NPO. Prior to admission, pt reports not being able to eat anything for the past 6 days. Pt also reports an unintentional weight loss in the past 8 weeks. Pt mentioned he used to weigh 297 lbs. Pt currently has a weight of 253 lbs in chart. If accurate, this would be a 15% weight loss within 8 weeks significant weight loss. Pt stated he also has been drinking Ensure or Boost at home. No N/V reported at this time. Recommend advancing diet when medically appropriate. Will continue to monitor Current Diet: NPO Malnutrition Evaluation (03/04/20) The patient meets criteria for unspecified SEVERE protein-calorie malnutrition. Energy intake: <50% of estimated energy requirements for >5 days per pt report Weight loss: 15% weight loss in 8 weeks per pt report Fat loss: no loss identified per observation Muscle loss: no loss identified per observation Supporting Evidence: Fluid accumulation: unable to evaluate Functional Status: unable to evaluate Diet Education Needs Assessment: Diet education not indicated. Nutrition Care Level: moderate Signed: Maggy Davidson RD, LD
--- NOTE | 2020-03-04 19:49 | History and Physical ---
CHIEF COMPLAINT: Right lower quadrant abdominal pain. HISTORY OF PRESENT ILLNESS: A 50-year-old male reports has a history of tonsil cancer, in which he follows up with Dr. Ovidio Shin, Oncology here in [place], was complaining of right lower quadrant abdominal pain since Friday of this week, and he was told to come to the ER for further evaluation and management. The patient reports that he recently was complaining of right lower quadrant abdominal pain, back in November of 2019, went to [place] ER, it was told he had a little tear and was discharged home from the emergency room with no followup. He now reports with worsening right lower quadrant abdominal pain that began on Friday, progressive, persistent and sharp in nature. He presented to [facility] ER, with CT imaging consistent with acute appendicitis. The patient denies any cough, congestion, fever, or any chest pain. The patient was seen and evaluated at bedside on the medical floor, currently doing well with no other issues at this time. REVIEW OF SYSTEMS: Pertinent positive for the right lower quadrant abdominal pain, decreased oral intake. The rest of 14-point review of systems are reviewed with the patient, are negative. ALLERGIES: NO KNOWN DRUG ALLERGIES. HOME MEDICATIONS: 1. Osseo. 2. Lisinopril. 3. Hydrochlorothiazide. PAST MEDICAL HISTORY: He reports having tonsil cancer, currently on treatment and hypertension. PAST SURGICAL HISTORY: Reports none. FAMILY HISTORY: Hypertension and diabetes. SOCIAL HISTORY: No drugs. No alcohol. He does not smoke. Good social support. PHYSICAL EXAMINATION: VITAL SIGNS: Temperature is 98.2, pulse 58, respiratory rate is 18, blood pressure 113/60, and pulse ox 96% on room air. GENERAL: Not in acute distress, alert and oriented x3. Cooperative on examination. HEENT: Head is normocephalic and atraumatic. Eyes, pupils are round and reactive to light. PULMONARY: Clear to auscultation bilaterally. No wheezing, no rales, no rhonchi, no crackles. CARDIOVASCULAR: Positive S1, S2. No murmurs, rubs, or gallops appreciated. ABDOMEN: He is tender to palpation in the right lower quadrant. He now has a CARMINA drain. MUSCULOSKELETAL: Strength is 5/5 throughout. No evidence of any muscle deficits on examination. No weakness appreciated. NEUROLOGIC: Cranial nerves II through XII grossly intact. No evidence of any neurological deficits on exam. SKIN: Intact. Warm to touch. Good cap refill. PSYCHIATRIC: Normal affect and mood. EXTREMITIES: No edema. Good range of motion throughout LABORATORY FINDINGS: Showed white count 7, hemoglobin 12, hematocrit 36, and platelets of 180. Chemistry, sodium 141, potassium 4.5, chloride 104, bicarb 25, anion gap of 16, BUN is 8, creatinine 0.74, and calcium is 9.5. LFTs within normal range. Troponins are negative. Albumin was 3 and lipase is 57. Urinalysis with negative serology. Wallace virus is pending. Urinalysis, preliminary no growth. IMAGING STUDIES: CT of the abdomen and pelvis shows acute appendicitis, no evidence of perforation associated abscess. Diffuse hepatic steatosis. Diverticulosis. Chest x-ray shows no focal pneumonia or pulmonary edema. IMPRESSION: 1. Acute appendicitis, status post laparoscopic appendectomy with evidence of gangrenous appendix, now with a CARMINA drain. 2. Abdominal pain, nausea, and vomiting secondary to #1. 3. Hypertension. 4. History of tonsil cancer? PLAN: At this time, the patient is doing very well postoperatively. He does have a CARMINA drain. He is on IV antibiotics with Flagyl and Rocephin. Continue with pain control. He is still n.p.o. Continue with IV fluids for now. We will hold anticoagulation just for today. Put him on SCDs, and if improved and General Surgery agrees, we will put him on Lovenox for DVT prophylaxis. Encourage ambulation. MD DONTE Conklin/DOLORES /[id number]
[2020-03-04] MEDS: PANTOPRAZOLE 40 MG 10ML VIAL IV SCH (20:30)
[2020-03-04] MEDS: CEFTRIAXONE SOD 2 GM/NS 100 ML 100 ML IV SCH (20:30)
[2020-03-05] VITALS (8 sets, daily range): BP systolic 106–133; BP diastolic 62–75
[2020-03-05] MEDS: DEXTROSE 5%/0.9% SOD CHL 1,000 ML IV SCH ×3 (00:03→21:00)
[2020-03-05] MEDS: METRONIDAZOLE 500MG/NS 100ML 100 ML IV SCH ×5 (00:03→23:43)
[2020-03-05] MEDS: ONDANSETRON HCL INJ 2MG/ML 2ML 2 MG/ML VIAL IV PRN ×5 (02:00→20:55)
[2020-03-05] MEDS: MORPHINE SULFATE INJ 4 MG/ML INJ 1ML IV PRN ×5 (02:00→20:55)
[2020-03-05 06:11] LABS: BASOPHILS % 0.3 % (0.0-1.0); EOSINOPHILS # (AUTO) 0.1 (0.0-0.4); EOSINOPHILS % 1.5 % (0.0-6.0); HEMATOCRIT 33.8 % (38.2-49.6); HEMOGLOBIN 11.8 g/dL (14.0-18.0); LYMPHOCYTES # (AUTO) 0.4 (1.0-3.2); MEAN CORPUSCULAR HEMOGLOBIN 33.3 pg (28-32); MEAN CORPUSCULAR HGB CONC 34.9 g/dL (31-35); MEAN CORPUSCULAR VOLUME 95.5 fL (81-99); MONOCYTES # (AUTO) 0.3 (0.2-0.8); MONOCYTES % 7.9 % (4.4-11.3); NEUTROPHILS # (AUTO) 3.1 (2.1-6.9); NEUTROPHILS % 80.3 % (38.7-80.0); PLATELET COUNT 133 x10e3/uL (140-360); RED BLOOD COUNT 3.54 x10e6/uL (4.3-5.7); RED CELL DISTRIBUTION WIDTH 14.9 % (11.7-14.4)
[2020-03-05 06:29] LABS: ANION GAP 12.6 mmol/L (8-16); BLOOD UREA NITROGEN 10 mg/dL (7-26); BUN/CREATININE RATIO 13 (6-25); CALCIUM 9.1 mg/dL (8.4-10.2); CARBON DIOXIDE 28 mmol/L (22-29); CHLORIDE 105 mmol/L (98-107); CREATININE, SERUM 0.76 mg/dL (0.72-1.25); EST GLOMERULAR FILTRATION RATE > 60 ML/MIN (60-); GLUCOSE 108 mg/dL (74-118); POTASSIUM 3.6 mmol/L (3.5-5.1); SODIUM 142 mmol/L (136-145)
--- NOTE | 2020-03-05 07:00 | NUR ---
BEDSIDE SHIFT REPORT RECEIVED FROM MANAGER OF SALES RN. PT DENIES NEEDS AT THIS TIME.
[2020-03-05] MEDS: DOCUSATE SODIUM 100 MG CAP PO SCH ×2 (08:19→17:11)
[2020-03-05] MEDS ORDERED: BISACODYL 10 MG SUPP PR ONE (12:00)
[2020-03-05] MEDS: HYDROCODONE/APAP 7.5MG-325MG 1 EA TAB PO PRN ×2 (12:56→19:03)
--- NOTE | 2020-03-05 17:17 | Progress Note ---
DATE: 03/05/2020 Medicine Progress Note. SUBJECTIVE: The patient is doing much better today with no complaints. He is on full liquid diet. He is ambulating. PHYSICAL EXAMINATION: VITAL SIGNS: Temperature is 98.2, pulse 55, respiratory rate is 20, blood pressure is 106/64, pulse ox 97% on room air. GENERAL: Not in acute distress, alert and oriented x3. Cooperative on examination. PULMONARY: Clear to auscultation bilaterally. No wheezing, no rales, no rhonchi, no crackles appreciated. CARDIOVASCULAR: Positive S1, S2. No murmurs, rubs, or gallops appreciated. ABDOMEN: Soft, nontender, nontender to palpation. Bowel sounds present. MUSCULOSKELETAL: Strength is 5/5 throughout. No evidence of any muscle deficits on examination. SKIN: Intact. Warm to touch. Good cap refill. PSYCHIATRIC: Normal affect and mood. EXTREMITIES: No edema. Good range of motion throughout LABORATORY FINDINGS: White count 3.9, hemoglobin 11.8, hematocrit 33, platelets of 133. Chemistry, reviewed, stable. MICROBIOLOGY: Urine cultures were negative. IMAGING STUDIES: Nothing new. IMPRESSION: 1. Acute appendicitis, status post laparoscopic appendectomy with evidence of gangrenous appendix with a CARMINA drain performed on 03/04/2020. 2. Abdominal pain, nausea, and vomiting-resolved. 3. Hypertension. 4. History of tonsil cancer? PLAN: At this time, the patient is doing very well postoperatively. Continue with pain control. He does have a CARMINA drain. Continue antibiotics. He is on a liquid diet now. Continue with IV fluids. I will go ahead and put him on heparin for DVT prophylaxis. MD DONTE Conklin/DOLORES /[id number]
[2020-03-05 17:18] LABS: BASOPHILS % 0.5 % (0.0-1.0); EOSINOPHILS # (AUTO) 0.1 (0.0-0.4); EOSINOPHILS % 2.5 % (0.0-6.0); HEMATOCRIT 36.3 % (38.2-49.6); LYMPHOCYTES # (AUTO) 0.3 (1.0-3.2); LYMPHOCYTES % 8.1 % (18.0-39.1); MEAN CORPUSCULAR HEMOGLOBIN 30.5 pg (28-32); MEAN CORPUSCULAR HGB CONC 33.1 g/dL (31-35); MEAN CORPUSCULAR VOLUME 92.1 fL (81-99); MONOCYTES # (AUTO) 0.3 (0.2-0.8); MONOCYTES % 7.6 % (4.4-11.3); NEUTROPHILS # (AUTO) 3.2 (2.1-6.9); NEUTROPHILS % 80.3 % (38.7-80.0); PLATELET COUNT 168 x10e3/uL (140-360); RED BLOOD COUNT 3.94 x10e6/uL (4.3-5.7); RED CELL DISTRIBUTION WIDTH 14.1 % (11.7-14.4)
[2020-03-05 17:38] LABS: BLOOD UREA NITROGEN 7 mg/dL (7-26); BUN/CREATININE RATIO 9 (6-25); CALCIUM 9.2 mg/dL (8.4-10.2); CARBON DIOXIDE 28 mmol/L (22-29); CHLORIDE 105 mmol/L (98-107); CREATININE, SERUM 0.74 mg/dL (0.72-1.25); EST GLOMERULAR FILTRATION RATE > 60 ML/MIN (60-); GLUCOSE 114 mg/dL (74-118); SODIUM 142 mmol/L (136-145)
[2020-03-05] MEDS: PANTOPRAZOLE 40 MG 10ML VIAL IV SCH (20:50)
[2020-03-05] MEDS: CEFTRIAXONE SOD 2 GM/NS 100 ML 100 ML IV SCH (20:50)
[2020-03-05] MEDS: HEPARIN SOD (PORCINE) 5,000 UNIT/ML VIAL SC SCH (21:00)
[2020-03-06] VITALS: BP 128/68
[2020-03-06] MEDS: ONDANSETRON HCL INJ 2MG/ML 2ML 2 MG/ML VIAL IV PRN ×2 (02:20→06:20)
[2020-03-06] MEDS: MORPHINE SULFATE INJ 4 MG/ML INJ 1ML IV PRN ×2 (02:20→06:20)
[2020-03-06] MEDS: HYDROCODONE/APAP 7.5MG-325MG 1 EA TAB PO PRN ×2 (03:20→09:50)
[2020-03-06 04:00] VITALS: BP 127/78
[2020-03-06 05:27] LABS: BASOPHILS % 0.5 % (0.0-1.0); EOSINOPHILS # (AUTO) 0.2 (0.0-0.4); EOSINOPHILS % 4.8 % (0.0-6.0); HEMATOCRIT 33.4 % (38.2-49.6); HEMOGLOBIN 11.3 g/dL (14.0-18.0); LYMPHOCYTES # (AUTO) 0.3 (1.0-3.2); LYMPHOCYTES % 7.7 % (18.0-39.1); MEAN CORPUSCULAR HEMOGLOBIN 31.5 pg (28-32); MEAN CORPUSCULAR HGB CONC 33.8 g/dL (31-35); MONOCYTES # (AUTO) 0.3 (0.2-0.8); MONOCYTES % 8.3 % (4.4-11.3); NEUTROPHILS # (AUTO) 2.9 (2.1-6.9); NEUTROPHILS % 77.6 % (38.7-80.0); PLATELET COUNT 156 x10e3/uL (140-360); RED BLOOD COUNT 3.59 x10e6/uL (4.3-5.7)
[2020-03-06] MEDS: DEXTROSE 5%/0.9% SOD CHL 1,000 ML IV SCH ×2 (05:45→13:45)
[2020-03-06 05:50] LABS: ANION GAP 12.6 mmol/L (8-16); BLOOD UREA NITROGEN 6 mg/dL (7-26); BUN/CREATININE RATIO 8 (6-25); CALCIUM 8.8 mg/dL (8.4-10.2); CARBON DIOXIDE 28 mmol/L (22-29); CHLORIDE 103 mmol/L (98-107); CREATININE, SERUM 0.76 mg/dL (0.72-1.25); EST GLOMERULAR FILTRATION RATE > 60 ML/MIN (60-); GLUCOSE 117 mg/dL (74-118); POTASSIUM 3.6 mmol/L (3.5-5.1); SODIUM 140 mmol/L (136-145)
[2020-03-06] MEDS: METRONIDAZOLE 500MG/NS 100ML 100 ML IV SCH ×2 (06:00→12:28)
[2020-03-06 08:30] VITALS: BP 129/79
[2020-03-06] MEDS: DOCUSATE SODIUM 100 MG CAP PO SCH (08:37)
[2020-03-06] MEDS: HEPARIN SOD (PORCINE) 5,000 UNIT/ML VIAL SC SCH (08:40)
[2020-03-06 09:30] VITALS: BP 129/79
[2020-03-06 12:07] LABS: BLOOD UREA NITROGEN < 5 mg/dL (7-26); CALCIUM 9.4 mg/dL (8.4-10.2); CARBON DIOXIDE 30 mmol/L (22-29); CHLORIDE 103 mmol/L (98-107); CREATININE, SERUM 0.77 mg/dL (0.72-1.25); EST GLOMERULAR FILTRATION RATE > 60 ML/MIN (60-); GLUCOSE 96 mg/dL (74-118); SODIUM 141 mmol/L (136-145)
[2020-03-06 12:08] LABS: BUN/CREATININE RATIO 6 (6-25)
[2020-03-06 12:24] VITALS: BP 139/83
--- NOTE | 2020-03-06 15:02 | NUR ---
patient discharged. IV access and telemetry removed. discharge instructions and prescription reviewed with patient. patient also instructed on how to care for CARMINA drain. patient and aware of follow up appt needed on Friday, card provided. patient ambulated off unit in stable condition to 's personal vehicle.
--- NOTE | 2020-03-07 02:52 | Discharge Summary ---
FINAL DISCHARGE DIAGNOSES: 1. Acute appendicitis, status post laparoscopic appendectomy with evidence of gangrenous appendix with the CARMINA drain performed on 03/04/2020, by Dr. Peoples. 2. Abdominal pain, nausea, and vomiting -- resolved. 3. Hypertension. 4. History of tonsil cancer, on treatment with an outpatient oncologist. TITLE DEPARTMENT MANAGER: General Surgery. PHYSICAL EXAMINATION: VITAL SIGNS: Temperature is 97.8, pulse is , pulse ox 99% on room air. LABORATORY FINDINGS: Show white count 3.7, hemoglobin 11.3, hematocrit 33, platelets of 156. Coagulation; PT 13, INR 1, PTT 34. Chemistry, sodium 141, potassium 4, chloride 103, bicarb 30, anion gap of 12. BUN is 5, creatinine 0.77, glucose is 96, calcium is 9.4. LFTs within normal range. Troponins were negative. Lipase is 57. Albumin 3.6. Urinalysis negative. Serologies: Coronavirus not detected. MICROBIOLOGY: Urine cultures have been negative. IMAGING STUDIES: CT abdomen and pelvis shows acute appendicitis. There is no evidence of perforation or associated abscess. Diffuse hepatic steatosis. Diverticulosis. Chest x-ray negative. HOSPITAL COURSE: A 50-year-old male, came into the ED with complaints of right lower quadrant abdominal pain, found to have acute appendicitis on CT imaging. General Surgery was consulted. The patient underwent status post laparoscopic appendectomy, which showed evidence of gangrenous appendix and a CARMINA drain was inserted and all performed on 03/04/2020. While he was on broad-spectrum IV antibiotic therapy, he was initially n.p.o., then advanced to clear liquid diet and then to solid food and which he tolerated well. The patient was ambulating with no complications. His pain was well controlled and tolerable. The patient was cleared for discharge by General surgery with followup on 03/08/2020, of this week for further evaluation and management. The patient was discharged on oral Augmentin as well for antibiotic therapy. The patient was stable prior to being discharged to home. On the day of discharge, vital signs were stable. Labs reviewed and stable. The patient was seen, evaluated, and examined thoroughly on the day of discharge. No other complaints. The patient verbalized understanding and he agrees to plan of care to follow up accordingly as an outpatient with primary care physician in 1 week and General Surgery this week on 03/08/2020. MEDICATIONS: See med reconciliation form. DISPOSITION: To home. CONDITION: Stable. DIET: Heart healthy. In the event of any worsening symptoms, the patient was advised to come back to the ED for further evaluation. Discharge summary took greater than 35 minutes. MD DONTE Conklin/MODCary /[id number]
== END 2020-03-06 15:00 | disposition home or self-care (01) | DRG 341 ==
LOC: ER 10:15 → ERHOLD 12:20 → MED/SURG 15:25
PROVIDERS: ADMIT Internal Medicine; ATTEND Internal Medicine
PROC: 0DTJ4ZZ Resection of Appendix, Percutaneous Endoscopic Approach (ICD-10-PCS; principal; 2020-03-03 12:30)
DX: K35.891 Other acute appendicitis without perforation, with gangrene (principal); E43 Unspecified severe protein-calorie malnutrition; E66.01 Morbid (severe) obesity due to excess calories; Z68.39 Body mass index [BMI] 39.0-39.9, adult; Z11.59 Encounter for screening for other viral diseases; I10 Essential (primary) hypertension; Z85.89 Personal history of malignant neoplasm of other organs and systems; K76.0 Fatty (change of) liver, not elsewhere classified; Z68.36 Body mass index [BMI] 36.0-36.9, adult; K57.90 Diverticulosis of intestine, part unspecified, without perforation or abscess without bleeding
CPT/HCPCS: 36415; 71045; 74177; 80048; 80053; 81001; 82550; 82553; 83690; 83735; 84484; 85025; 85610; 85730; 87086; 88304; 99284; C1766; J0696; J1100; J1170; J1644; J2001; J2250; J2270; J2405; J2543; J2710; J3010; J7030; J7042; Q9967; U0002

== ENCOUNTER 2020-08-02 08:15 | Emergency (ER) | payer OTHER ==
[~2020-08-02] VITALS: Ht 170.2 cm; Wt 114.8 kg
[~2020-08-02 08:15] MED LIST: NORCO 10-325 T1 EACH PO; ZESTORETIC 10-1 EAC1
[2020-08-02] MEDS ORDERED: FLUORESCEIN SOD(OPTH) 1 MG STRP OP ONE (08:30)
[2020-08-02] MEDS ORDERED: FLUORESCEIN SOD(OPTH) 1 MG STRP ONE (08:35)
[2020-08-02] MEDS ORDERED: EYE IRRIGATION (OPTH) 120 ML BTL ONE (08:35)
== END 2020-08-02 09:21 | disposition home or self-care (01) ==
LOC: ER 08:30
DX: G51.0 Bell's palsy (principal); I10 Essential (primary) hypertension; K21.9 Gastro-esophageal reflux disease without esophagitis; Z85.818 Personal history of malignant neoplasm of other sites of lip, oral cavity, and pharynx
CPT/HCPCS: 70450; 99283